=== PATIENT | male | born 1945 | race Caucasian/White ===

== ENCOUNTER 2017-03-29 09:57 | Day surgery (SDC) | payer MEDICARE, OTHER ==
[~2017-03-29] VITALS: Ht 167.6 cm; Wt 90.9 kg
[~2017-03-29 09:57] MED LIST: ADDERALL 15 MG15 MG PO; AXIRON30 MG/1.5 TP; BAYER CHEWABLE81 MG PO; CALCIUM 500 + D1 TAB PO; FLOMAX0.4 MG PO; K-TAB10 MEQ PO; PRINZIDE 20-251 TA1 PO; VITAMIN B-121000 MCG PO
[2017-03-29 10:35] LABS: HEMATOCRIT 59.7 % (42.0-54.0); HEMOGLOBIN 20.2 g/dL (13.5-17.5); MCH 31.8 pg (26.0-34.0); MCHC 33.8 g/dL (31.0-37.0); MCV 93.9 fL (80.0-100.0); MEAN PLATELET VOLUME 9.7 fL (7.4-10.4); RBC 6.36 10x6/uL (4.20-6.10); RDW 15.3 % (11.5-14.5); WBC 7.4 10x3/uL (4.8-10.8)
[2017-03-29 10:55] LABS: ANION GAP 11.7 mmol/L (8-16); CALCIUM 9.1 mg/dL (8.5-10.1); CREATININE - SERUM 1.2 mg/dL (0.6-1.3); POTASSIUM - SERUM 3.7 mmol/L (3.5-5.1)
[2017-03-29 11:26] VITALS: BP 114/76; Ht 167.6 cm; Wt 90.9 kg
[2017-03-29] MEDS ORDERED: HYDROCODONE-APA1 TAB PO (15:24)
--- NOTE | 2017-04-01 14:01 | OP ---
PATIENT NAME: CARLOS HILL MEDICAL RECORD: [id number] :45 LOCATION:D.OPS ADMISSION DATE: SURGEON: SALOMÓN PARK MD DATE OF OPERATION: 03/29/2017 PREOPERATIVE DIAGNOSIS: Rupture of the left biceps tendon distally. POSTOPERATIVE DIAGNOSIS: Rupture of the left biceps tendon distally. PROCEDURE: Repair of left distal biceps tendon. SURGEON: Salomón Park MD ANESTHESIA: General. INTRAOPERATIVE COMPLICATIONS: None. SUMMARY OF PATHOLOGIC FINDINGS: The patient had a complete rupture of the biceps tendon that was still attached to the lacertus fibrosus making it easy to find. OPERATIVE SUMMARY IN DETAIL: After obtaining the appropriate preoperative orthopedic surgery consent as well as anesthetic consultation, evaluation and clearance, the patient was brought to the operating room and placed on the operating table in supine position. After adequate general laryngeal mask airway anesthesia was administered, tourniquet was placed about the proximal aspect of the left upper extremity. Left upper extremity was then prepped and draped in a routine sterile fashion. The arm was elevated and exsanguinated, tourniquet inflated to 350 mmHg. Curvilinear incision was made across the antecubital fossa. This was taken down to the level of the tendon that was identified, dissected free for later reapproximation. Dissection was gently carried down to the radial tuberosity and under direct visualization, the radial tuberosity was cleaned free of residual tendon material. The guidewire for the cannulated reamers were placed, 8.5 cannulated reamer was placed unicortically while the guidewire was placed bicortically. A FiberLoop was utilized to place the appropriate whipstitches into the distal tendon, so the FiberLoop was then placed through the button. The button was deployed bicortically and tightened until the tendon went into the bone. These were then tied at this point and then a second suture was tied through the tendon as a backup. Having completed this, the wound was copiously irrigated and was closed with 2-0 Vicryl followed by 4-0 Prolene in running fashion. Sterile dressings were applied. The patient was awakened, taken to the recovery room in stable condition. All final needle and sponge counts were correct. TRANSINT:[id number] Voice Confirmation ID: [id number] DOCUMENT ID: [id number] SALOMÓN PARK MD at 1401 CC: [id number] DICTATION DATE: 03/29/17 1619 RESIDENTIAL SUPPORT WORKER: 03/29/17 2326 [facility] 03/29/17 [place] [id number] [place] [address]
== END 2017-03-29 17:46 | disposition home or self-care (01) ==
LOC: D.OPS 09:57 → D.PAN 11:00 → D.OPS 13:45
PROVIDERS: Anesthesiology
DX: M66.321 Spontaneous rupture of flexor tendons, right upper arm (principal); Z01.812 Encounter for preprocedural laboratory examination